=== PATIENT | male | born 1970 | race Caucasian/White ===

== ENCOUNTER 2020-11-10 14:33 | Emergency (ER) | payer BC ==
[~2020-11-10] VITALS: Ht 182.9 cm; Wt 109.1 kg
[2020-11-10 14:36] VITALS: TEMP 94.8
[2020-11-10 15:25] LABS: BASO % 0.8 % (0.0-2.0); EOS # 0.1 (0.0-0.7); EOS % 0.9 % (0-4.0); GRAN # 2.6 (1.4-6.5); GRAN % 49.2 % (42.2-75.2); HEMATOCRIT 39.8 % (42.0-52.0); HEMOGLOBIN 13.4 g/dl (13.5-18.0); LYMPH # 2.2 (1.2-3.4); LYMPH % 40.6 % (20.0-51.0); MEAN CELL VOLUME 89 fl (80.0-100.0); MEAN CORPUSCULAR HEMOGLOBIN 30 pg (27.0-31.0); MEAN CORPUSCULAR HGB CONC 34 g/dl (33.0-37.0); MEAN PLATELET VOLUME 8.9 fl (7.4-10.4); MONO # 0.4 (0.1-0.6); MONO % 8.1 % (1.7-9.3); PLATELET COUNT 211 K/mm3 (130-400); RED BLOOD COUNT 4.45 M/mm3 (4.20-5.60); REDCELL DISTRIBUTION WIDTH-CV 14.4 % (11.5-14.5)
[2020-11-10 15:30] LABS: BILIRUBIN,TOTAL 0.4 mg/dL (0.0-1.0); CALCIUM 8.3 mg/dL (8.4-10.2); CREATININE, serum 0.83 (0.66-1.25); TOTAL PROTEIN 7.5 gm/dL (6.4-8.2)
[2020-11-10 15:55] LABS: COLLECTION METHOD CLEAN CATCH
[2020-11-10 16:09] LABS: PH 7 (5-8); SQUAMOUS EPITHELIAL None Seen /hpf; URINE APPEARANCE Clear; URINE BACTERIA None Seen /hpf; URINE BILIRUBIN Negative (NEGATIVE); URINE BLOOD 1+ (NEGATIVE); URINE COLOR Colorless; URINE GLUCOSE Negative (NEGATIVE); URINE KETONE Negative (NEGATIVE); URINE LEUKOCYTE ESTERASE Negative (NEGATIVE); URINE NITRATE Negative (NEGATIVE); URINE PROTEIN(semi-quant) Negative (NEGATIVE); URINE RBC 0-2 /hpf; URINE UROBILINOGEN Negative (NEGATIVE)
[2020-11-10] MEDS ORDERED: LIBRIUM 25M25 MG/CAP PO (18:20)
[2020-11-10 18:48] VITALS: BP 123/81; PULSE 82
== END 2020-11-10 18:48 | disposition home or self-care (01) ==
LOC: COL.ER 14:33
PROVIDERS: Physician Assistant
DX: F10.129 Alcohol abuse with intoxication, unspecified (principal); I10 Essential (primary) hypertension; Z88.2 Allergy status to sulfonamides
CPT/HCPCS: J2060; J7120

== ENCOUNTER 2020-12-27 16:10 | Emergency (ER) | payer BC ==
[~2020-12-27] VITALS: Ht 182.9 cm; Wt 111.4 kg
[~2020-12-27 16:10] MED LIST: LIBRIUM 25M25 MG/CAP PO
[2020-12-27 16:11] VITALS: TEMP 100.4
[2020-12-27 16:46] LABS: BASO % 0.5 % (0.0-2.0); EOS # 0.1 (0.0-0.7); GRAN # 3.6 (1.4-6.5); GRAN % 58.5 % (42.2-75.2); HEMOGLOBIN 14.2 g/dl (13.5-18.0); LYMPH % 31.9 % (20.0-51.0); MEAN CELL VOLUME 88 fl (80.0-100.0); MEAN CORPUSCULAR HEMOGLOBIN 31 pg (27.0-31.0); MEAN CORPUSCULAR HGB CONC 35 g/dl (33.0-37.0); MEAN PLATELET VOLUME 9.1 fl (7.4-10.4); MONO # 0.5 (0.1-0.6); MONO % 7.9 % (1.7-9.3); PLATELET COUNT 170 K/mm3 (130-400); RED BLOOD COUNT 4.65 M/mm3 (4.20-5.60); REDCELL DISTRIBUTION WIDTH-CV 14.5 % (11.5-14.5)
[2020-12-27 16:58] LABS: ALANINE AMINOTRANSFERASE 39 U/L (4-49); ALBUMIN 4.1 gm/dL (3.5-5.0); ALKALINE PHOSPHATASE 70 U/L (50-136); ANION GAP 10 mmol/L (7-16); AST,SGOT 70 U/L (15-37); BILIRUBIN,TOTAL 0.4 mg/dL (0.0-1.0); BLOOD UREA NITROGEN 13 mg/dL (9-20); CALCIUM 8.3 mg/dL (8.4-10.2); CARBON DIOXIDE 24 mmol/L (22-30); CHLORIDE 106 mmol/L (98-107); CREATININE, serum 0.86 (0.66-1.25); GLUCOSE 113 mg/dL (74-106); LIPASE 155 U/L (23-300); POTASSIUM 3.8 mmol/L (3.4-5.0); SODIUM 140 mmol/L (137-145); TOTAL PROTEIN 7.7 gm/dL (6.4-8.2)
[2020-12-27 17:00] LABS: C-REACTIVE PROTEIN < 0.5 mg/dL (0.0-0.9)
[2020-12-27 19:49] LABS: COLLECTION METHOD CLEAN CATCH
[2020-12-27 19:55] LABS: MUCOUS Present /lpf; PH 6 (5-8); SQUAMOUS EPITHELIAL None Seen /hpf; URINE APPEARANCE Clear; URINE BACTERIA None Seen /hpf; URINE BILIRUBIN Negative (NEGATIVE); URINE BLOOD 1+ (NEGATIVE); URINE COLOR Yellow; URINE GLUCOSE Negative (NEGATIVE); URINE KETONE Negative (NEGATIVE); URINE LEUKOCYTE ESTERASE Negative (NEGATIVE); URINE NITRATE Negative (NEGATIVE); URINE PROTEIN(semi-quant) Negative (NEGATIVE); URINE RBC 0-2 /hpf; URINE UROBILINOGEN Negative (NEGATIVE)
[2020-12-27 21:05] VITALS: BP 128/85; PULSE 80
== END 2020-12-27 21:20 | disposition home or self-care (01) ==
LOC: COL.ER 16:10
PROVIDERS: Family Medicine
DX: F10.129 Alcohol abuse with intoxication, unspecified (principal); F10.139 Alcohol abuse with withdrawal, unspecified; E86.0 Dehydration; I10 Essential (primary) hypertension; F41.9 Anxiety disorder, unspecified; Z79.899 Other long term (current) drug therapy
CPT/HCPCS: J2060; J7120

== ENCOUNTER 2021-01-23 11:29 | Emergency (ER) | payer BC ==
[~2021-01-23] VITALS: Ht 177.8 cm; Wt 113.6 kg
[2021-01-23 11:31] VITALS: TEMP 99.7
[2021-01-23 12:03] LABS: BASO # 0.1 (0.0-0.2); EOS # 0.1 (0.0-0.7); EOS % 1.9 % (0-4.0); GRAN # 2.8 (1.4-6.5); GRAN % 53.9 % (42.2-75.2); HEMATOCRIT 40.5 % (42.0-52.0); HEMOGLOBIN 13.7 g/dl (13.5-18.0); LYMPH # 1.9 (1.2-3.4); LYMPH % 37.7 % (20.0-51.0); MEAN CELL VOLUME 89 fl (80.0-100.0); MEAN CORPUSCULAR HEMOGLOBIN 30 pg (27.0-31.0); MEAN CORPUSCULAR HGB CONC 34 g/dl (33.0-37.0); MEAN PLATELET VOLUME 8.8 fl (7.4-10.4); MONO # 0.3 (0.1-0.6); MONO % 5.3 % (1.7-9.3); PLATELET COUNT 239 K/mm3 (130-400); RED BLOOD COUNT 4.57 M/mm3 (4.20-5.60); REDCELL DISTRIBUTION WIDTH-CV 13.7 % (11.5-14.5)
[2021-01-23] MEDS ORDERED: NEURONTIN300 MG/CAP PO (12:04)
[2021-01-23] MEDS ORDERED: LOPRESSOR 225 MG/TAB PO (12:05)
[2021-01-23] MEDS ORDERED: SEROQUEL 2525 MG/TAB PO (12:05)
[2021-01-23] MEDS ORDERED: PAXIL 20MG20 MG PO (12:06)
[2021-01-23 12:16] LABS: ALBUMIN 3.9 gm/dL (3.5-5.0); BILIRUBIN,TOTAL 0.5 mg/dL (0.0-1.0); CALCIUM 8.5 mg/dL (8.4-10.2); CREATININE, serum 0.85 (0.66-1.25); MAGNESIUM 1.7 mg/dL (1.6-2.3); POTASSIUM 4.2 mmol/L (3.4-5.0); TOTAL PROTEIN 7.3 gm/dL (6.4-8.2)
[2021-01-23] MEDS ORDERED: LIBRIUM 25M25 MG/CAP PO (12:57)
[2021-01-23 13:10] LABS: COLLECTION METHOD CLEAN CATCH
[2021-01-23 13:16] LABS: PH 6 (5-8); SQUAMOUS EPITHELIAL None Seen /hpf; URINE APPEARANCE Clear; URINE BACTERIA None Seen /hpf; URINE BILIRUBIN Negative (NEGATIVE); URINE BLOOD 1+ (NEGATIVE); URINE COLOR Straw; URINE GLUCOSE Negative (NEGATIVE); URINE KETONE Negative (NEGATIVE); URINE LEUKOCYTE ESTERASE Negative (NEGATIVE); URINE NITRATE Negative (NEGATIVE); URINE PROTEIN(semi-quant) Negative (NEGATIVE); URINE RBC 0-2 /hpf; URINE UROBILINOGEN Negative (NEGATIVE)
[2021-01-23 13:51] VITALS: BP 106/66; PULSE 79
== END 2021-01-23 13:53 | disposition home or self-care (01) ==
LOC: COL.ER 11:29
PROVIDERS: Emergency Medicine
DX: F10.129 Alcohol abuse with intoxication, unspecified (principal); F41.9 Anxiety disorder, unspecified; Y90.8 Blood alcohol level of 240 mg/100 ml or more; Z79.899 Other long term (current) drug therapy
CPT/HCPCS: J2060; J3411; J7030

== ENCOUNTER 2021-04-17 05:35 | Emergency (ER) | payer BC ==
[~2021-04-17] VITALS: Ht 180.3 cm; Wt 112.7 kg
[~2021-04-17 05:35] MED LIST changes: +LOPRESSOR 225 MG/TAB PO; +NEURONTIN300 MG/CAP PO; +PAXIL 20MG20 MG PO; +SEROQUEL 2525 MG/TAB PO
[2021-04-17 05:39] VITALS: TEMP 97.5
[2021-04-17 05:59] LABS: BASO # 0.1 (0.0-0.2); BASO % 0.6 % (0.0-2.0); EOS # 0.2 (0.0-0.7); EOS % 1.9 % (0-4.0); GRAN # 5.4 (1.4-6.5); HEMATOCRIT 41.8 % (42.0-52.0); HEMOGLOBIN 13.9 g/dl (13.5-18.0); LYMPH # 2.1 (1.2-3.4); MEAN CELL VOLUME 91 fl (80.0-100.0); MEAN CORPUSCULAR HEMOGLOBIN 30 pg (27.0-31.0); MEAN CORPUSCULAR HGB CONC 33 g/dl (33.0-37.0); MEAN PLATELET VOLUME 9.2 fl (7.4-10.4); MONO # 0.6 (0.1-0.6); MONO % 7.3 % (1.7-9.3); PLATELET COUNT 232 K/mm3 (130-400); RED BLOOD COUNT 4.59 M/mm3 (4.20-5.60); REDCELL DISTRIBUTION WIDTH-CV 14.6 % (11.5-14.5)
[2021-04-17 06:12] LABS: ANION GAP 14 mmol/L (7-16); BLOOD UREA NITROGEN 18 mg/dL (9-20); CALCIUM 8.9 mg/dL (8.4-10.2); CARBON DIOXIDE 21 mmol/L (22-30); CHLORIDE 110 mmol/L (98-107); CREATININE, serum 1.56 (0.66-1.25); GLUCOSE 92 mg/dL (74-106); POTASSIUM 4.2 mmol/L (3.4-5.0); SODIUM 145 mmol/L (137-145)
[2021-04-17 06:27] LABS: TROPONIN-I < 0.012 ng/mL (0.000-0.035)
[2021-04-17 07:38] VITALS: BP 109/73; PULSE 92
== END 2021-04-17 07:51 | disposition home or self-care (01) ==
LOC: COL.ER 05:35
PROVIDERS: Emergency Medicine
DX: S09.90XA Unspecified injury of head, initial encounter (principal); S01.01XA Laceration without foreign body of scalp, initial encounter; F10.129 Alcohol abuse with intoxication, unspecified; I48.0 Paroxysmal atrial fibrillation; I10 Essential (primary) hypertension; R79.89 Other specified abnormal findings of blood chemistry; Z79.899 Other long term (current) drug therapy; W01.198A Fall on same level from slipping, tripping and stumbling with subsequent striking against other object, initial encounter; Y92.009 Unspecified place in unspecified non-institutional (private) residence as the place of occurrence of the external cause
CPT/HCPCS: J7030

== ENCOUNTER → 2021-04-26 | Outpatient (CLI) | payer BC ==
[~2021-04-26] MED LIST changes: +ATIVAN 0.50.5 MG/TAB PO; +ATIVAN 1MG T1 MG/TAB PO; +FOLIC ACID 11 MG/TA1 PO; +MEN'S ONE DAIL1 EACH PO; +NORVASC 5MG5 MG/TAB PO; +PRINIVIL40 MG PO; +SEROQUEL50 MG PO; +THIAMINE 1100 MG/TAB PO; +VITAMIN B-6100 MG
[2021-04-26 17:03] VITALS: BP 140/86; PULSE 62
== END ==
LOC: COL.ER 16:54
DX: Z48.02 Encounter for removal of sutures (principal)

== ENCOUNTER 2021-05-06 07:30 | Outpatient (CLI) | payer BC ==
[~2021-05-06] VITALS: Ht 182.9 cm; Wt 115.0 kg
[~2021-05-06 07:30] MED LIST changes: -ATIVAN 0.50.5 MG/TAB PO; -ATIVAN 1MG T1 MG/TAB PO; -FOLIC ACID 11 MG/TA1 PO; -MEN'S ONE DAIL1 EACH PO; -NORVASC 5MG5 MG/TAB PO; -PRINIVIL40 MG PO; -SEROQUEL50 MG PO; -THIAMINE 1100 MG/TAB PO; -VITAMIN B-6100 MG
[2021-05-06] MEDS ORDERED: LIBRIUM 25M25 MG/CAP PO (08:25)
[2021-05-06] MEDS ORDERED: NEURONTIN300 MG/CAP PO (08:27)
[2021-05-06] MEDS ORDERED: NORVASC 5MG5 MG/TAB PO (08:32)
[2021-05-06] MEDS ORDERED: PRINIVIL40 MG PO (08:32)
[2021-05-06 09:19] VITALS: BP 120/79; PULSE 58; TEMP 97.9
--- NOTE | 2021-05-06 09:46 | NUR ---
Pt is dressed and ready to go. I reviewed discharge and follow-up instructions with patient who verbalized understanding. I walked with pt to exit.
== END 2021-05-06 09:46 | disposition home or self-care (01) ==
LOC: COL.RAD 07:30
DX: I34.1 Nonrheumatic mitral (valve) prolapse (principal); I48.0 Paroxysmal atrial fibrillation; Z20.822 Contact with and (suspected) exposure to COVID-19
CPT/HCPCS: J2704

== ENCOUNTER 2021-06-10 06:46 | Observation (INO) | payer BC ==
[~2021-06-10] VITALS: Ht 15.2 cm; Wt 116.0 kg
[2021-06-10] VITALS (8 sets, daily range): BP systolic 127–150; BP diastolic 64–84; PULSE 66–78; TEMP 97.6–98.4
[~2021-06-10 06:46] MED LIST changes: +NORVASC 5MG5 MG/TAB PO; +PRINIVIL40 MG PO
[2021-06-10 07:31] LABS: BASO # 0.1 K/mm3 (0.0-0.2); BASO % 1.2 % (0.0-2.0); EOS % 0.4 % (0-4.0); GRAN # 3.3 K/mm3 (1.4-6.5); GRAN % 64.6 % (42.2-75.2); LYMPH # 1.5 K/mm3 (1.2-3.4); LYMPH % 29.3 % (20.0-51.0); MEAN CELL VOLUME 87 fl (80.0-100.0); MEAN CORPUSCULAR HEMOGLOBIN 30 pg (27.0-31.0); MEAN CORPUSCULAR HGB CONC 35 g/dl (33.0-37.0); MEAN PLATELET VOLUME 8.7 fl (7.4-10.4); MONO # 0.2 K/mm3 (0.1-0.6); MONO % 4.5 % (1.7-9.3); PLATELET COUNT 265 K/mm3 (130-400); RED BLOOD COUNT 4.97 M/mm3 (4.20-5.60)
[2021-06-10 07:54] LABS: ALBUMIN 4.2 gm/dL (3.5-5.0); BILIRUBIN,TOTAL 0.5 mg/dL (0.2-1.2); CALCIUM 9.1 mg/dL (8.4-10.2); CREATININE, serum 0.89 mg/dL (0.72-1.25); TOTAL PROTEIN 7.6 gm/dL (6.2-8.1)
[2021-06-10 08:53] LABS: INR 1.1 (0.8-3.0); PROTHROMBIN TIME 12.6 SECONDS (9.7-12.8)
--- NOTE | 2021-06-10 09:40 | NUR ---
Patient to room 347 by cart from the ED. A&Ox4. VSS. IV CDI. Visible tremors upper body. Patient ambulated to the bed with a standby assist. Nurse oriented the patient to location, room and call light. Denies pain and discomfort, requested something for anxiety. no further needs expressed. Nurse informed the patient that he will have a bed alarm on. Call light within reach. Bed alarm on
[2021-06-10 09:46] LABS: COLLECTION METHOD CLEAN CATCH
[2021-06-10] MEDS ORDERED: SEROQUEL50 MG PO (09:51)
[2021-06-10] MEDS ORDERED: VITAMIN B-6100 MG (09:52)
[2021-06-10] MEDS ORDERED: MEN'S ONE DAIL1 EACH PO (09:52)
[2021-06-10 09:54] LABS: PH 7 (5-8); SQUAMOUS EPITHELIAL None Seen /hpf; URINE APPEARANCE Clear; URINE BACTERIA None Seen /hpf; URINE BILIRUBIN Negative (NEGATIVE); URINE BLOOD Negative (NEGATIVE); URINE COLOR Straw; URINE GLUCOSE Negative (NEGATIVE); URINE KETONE Negative (NEGATIVE); URINE LEUKOCYTE ESTERASE Negative (NEGATIVE); URINE NITRATE Negative (NEGATIVE); URINE PROTEIN(semi-quant) Negative (NEGATIVE); URINE RBC 0-2 /hpf; URINE UROBILINOGEN Negative (NEGATIVE)
[2021-06-10 10:36] LABS: TRICYCLIC ANTIDEPRESS URINE NEGATIVE
--- NOTE | 2021-06-10 18:10 | NUR ---
Patient laying in bed lower half of body shaking, at the bedside. A&Ox3. VSS. IV CDI, fluids infusing. Detox protocol in place. Nursing staff encouraging patient to take deep breaths to help calm down. Patient verbalized an understanding. Call light within reach. Bed alarm on
--- NOTE | 2021-06-10 20:00 | NUR ---
PATIENT IS ALERT AND ORIENTED X4. RESTING IN BED. JUST LEFT TO GO HOME. PATIENT HAS IV TO LEFT AC. PATIENT IS ON GENERAL DIET AND CWAL. PATIENT ON TELE. PATIENT COMPLAINING OF ANXIETY. MEDS GIVEN PER ORDERS. PATIENT DENIES PAIN OR FURTHER NEEDS AT THIS TIME. CALL LIGHT WITHIN REACH. HEAD TO TOE ASSESSMENT COMPLETE.
[2021-06-11] VITALS (15 sets, daily range): BP systolic 125–153; BP diastolic 73–92; PULSE 62–84; TEMP 97.5–98.4
--- NOTE | 2021-06-11 04:22 | NUR ---
patient states he is feeling much less anxious now
--- NOTE | 2021-06-11 06:24 | NUR ---
PATIENT SLEPT THROUGH MOST OF NIGHT. CPAP ON. PATIENT STATES HE IS NOT ANXIOUS, JUST TIRED THIS MORNING. NO FURTHER NEEDS. WILL REPORT TO DAYSHIFT.
[2021-06-11 06:56] LABS: CALCIUM 8.8 mg/dL (8.4-10.2); CREATININE, serum 0.84 mg/dL (0.72-1.25); POTASSIUM 3.9 mmol/L (3.5-4.5)
--- NOTE | 2021-06-11 08:00 | NUR ---
Patient laying in bed, A&Ox4. VSS. IV CDI, fluids infusing. Denies pain, reports being anxious and needing medication for his anxiety. Detox protocol in place. No further needs expressed. Call light within reach. Bed alarm on
--- NOTE | 2021-06-11 11:56 | NUR ---
Plan is to return home with spouse Leesa . Patient reports that his PCP is Dr. Araceli Escalante but is looking for [facility] PCP and is okay with a referral. Patient reports the use of CPAP machine. RX obtained at [facility]. Patient interested in Dr. Goodson. Nicholas Goodson not taking private patients. Patient denies ahving any care concerns. Education on supports. Denies needing home health supports. Will continue to monitor for care supports.
--- NOTE | 2021-06-11 17:56 | NUR ---
Patient had an uneventful day. Laid in bed in the dark watching TV and sleeping intermittently throughout the shift. A&Ox4. VSS. IV CDI. Anxiety medication given when requested. Nurse encouraged patient to use coping skills to help decrease anxiety. Patient verbalized an understanding. No further needs expressed. Call light within reach
--- NOTE | 2021-06-11 20:43 | NUR ---
PT TAKES HS MEDS INCLUDING ATIVAN 2MG PO FOR COMPLAINT OF ANXIETY AND "SCRATCHY" FEELING. DENIES NAUSEA. NO OBVIOUS TREMORS WITH ARMS OUTSTRETCHED OR FINGER TIP TO FINGER TIP. GAIT STEADY. IS ALERT AND ORIENTED X4. SL TO LEFT AC FLUSHES WELL. PT DOES NOT WANT TO WEAR HOSPITAL SUPPLIED CPAP TONIGHT.
--- NOTE | 2021-06-12 01:03 | NUR ---
Patient care, medication administration and nursing documentation occurred during a Daylight Savings Time Change.
[2021-06-12 03:51] VITALS: BP 132/77; PULSE 68; TEMP 97.7
--- NOTE | 2021-06-12 06:00 | NUR ---
PT DENIES NEEDS. SCORING 2-3 ON DETOX SCALE. NO ATIVAN SINCE BEDTIME. REPORTS RESTING OK WITHOUT CPAP ON.
--- NOTE | 2021-06-12 07:05 | NUR ---
REPORT RECIEVED. NO COMPLAINTS OF PAIN OR DSYPNEA. NO SIGNS OR SYMPTOMS OF DISTRESS. CALL LIGHT WITHIN REACH
[2021-06-12 07:35] LABS: CALCIUM 9.1 mg/dL (8.4-10.2); CREATININE, serum 0.84 mg/dL (0.72-1.25); MAGNESIUM 1.8 mg/dL (1.6-2.6); POTASSIUM 3.8 mmol/L (3.5-4.5)
[2021-06-12 08:43] VITALS: BP 141/91; PULSE 75; TEMP 97.6
--- NOTE | 2021-06-12 09:32 | NUR ---
PT ASSESSED. NO SIGNS OR SYMPTOMS OF DISTRESS. NO COMPLAINTS OF PAIN OR DYPSNEA. PT COMPLAINS OF NAUSEA. PRN ZOFRAN GIVEN
[2021-06-12 12:25] VITALS: BP 141/77; PULSE 67; TEMP 98.6
[2021-06-12] MEDS ORDERED: ATIVAN 1MG T1 MG/TAB PO (14:48)
[2021-06-12] MEDS ORDERED: THIAMINE 1100 MG/TAB PO (14:49)
[2021-06-12] MEDS ORDERED: FOLIC ACID 11 MG/TA1 PO (14:49)
--- NOTE | 2021-06-12 15:40 | NUR ---
PT DISCHARGE COMPLETE. NO SIGNS OR SYMPTOMS OF DISTRESS. PT VERBALIZED UNDERSTANING OF TEACHING. NO COMPLAINTS OF PAIN OR DYSPNEA. IV REMOVED. PT WALKED SELF DOWNSTAIRS
== END 2021-06-12 13:45 | disposition home or self-care (01) ==
LOC: COL.ER 06:46 → SURG 08:13
PROVIDERS: Emergency Medicine; Physician Assistant; ADMIT Internal Medicine
DX: F10.239 Alcohol dependence with withdrawal, unspecified (principal); I10 Essential (primary) hypertension; I48.0 Paroxysmal atrial fibrillation; F41.9 Anxiety disorder, unspecified; G47.33 Obstructive sleep apnea (adult) (pediatric); Z87.820 Personal history of traumatic brain injury; Z79.899 Other long term (current) drug therapy
CPT/HCPCS: 99232-AI; G0378; J2060; J2405; J3360; J7030; J7120

== ENCOUNTER 2021-07-01 16:52 | Emergency (ER) | payer BC ==
[~2021-07-01] VITALS: Ht 182.9 cm; Wt 111.4 kg
[~2021-07-01 16:52] MED LIST changes: +ATIVAN 1MG T1 MG/TAB PO; +FOLIC ACID 11 MG/TA1 PO; +MEN'S ONE DAIL1 EACH PO; +SEROQUEL50 MG PO; +THIAMINE 1100 MG/TAB PO; +VITAMIN B-6100 MG
[2021-07-01 16:54] VITALS: TEMP 98.3
[2021-07-01 17:28] LABS: BASO # 0.1 K/mm3 (0.0-0.2); BASO % 1.2 % (0.0-2.0); EOS # 0.1 K/mm3 (0.0-0.7); EOS % 1.2 % (0-4.0); GRAN # 3.6 K/mm3 (1.4-6.5); GRAN % 47.9 % (42.2-75.2); HEMATOCRIT 44.9 % (42.0-52.0); HEMOGLOBIN 15.5 g/dl (13.5-18.0); LYMPH # 3.3 K/mm3 (1.2-3.4); LYMPH % 44.4 % (20.0-51.0); MEAN CELL VOLUME 88 fl (80.0-100.0); MEAN CORPUSCULAR HEMOGLOBIN 31 pg (27.0-31.0); MEAN CORPUSCULAR HGB CONC 35 g/dl (33.0-37.0); MEAN PLATELET VOLUME 9.2 fl (7.4-10.4); MONO # 0.4 K/mm3 (0.1-0.6); PLATELET COUNT 148 K/mm3 (130-400); RED BLOOD COUNT 5.08 M/mm3 (4.20-5.60); REDCELL DISTRIBUTION WIDTH-CV 13.6 % (11.5-14.5)
[2021-07-01 17:30] LABS: ALANINE AMINOTRANSFERASE 30 U/L (0-55); ALBUMIN 4.2 gm/dL (3.5-5.0); ALKALINE PHOSPHATASE 82 U/L (40-150); ANION GAP 18 mmol/L (7-16); AST,SGOT 45 U/L (5-34); BILIRUBIN,TOTAL 0.3 mg/dL (0.2-1.2); BLOOD UREA NITROGEN 12 mg/dL (8-26); CALCIUM 8.6 mg/dL (8.4-10.2); CARBON DIOXIDE 19 mmol/L (22-29); CHLORIDE 107 mmol/L (98-107); CREATININE, serum 1.12 mg/dL (0.72-1.25); GLUCOSE 101 mg/dL (70-99); SODIUM 144 mmol/L (136-145)
[2021-07-01 17:32] LABS: ACETAMINOPHEN < 1.0 ug/mL (10-30); SALICYLATE < 5.0 mg/dL (15.0-30.0)
[2021-07-01 17:33] LABS: ALCOHOL(ethanol),MEDICAL 372 mg/dL (0-10)
[2021-07-01 20:44] LABS: TRICYCLIC ANTIDEPRESS URINE NEGATIVE
[2021-07-01] MEDS ORDERED: ATIVAN 0.50.5 MG/TAB PO (21:24)
[2021-07-01 21:33] VITALS: BP 138/89; PULSE 84
== END 2021-07-01 21:36 | disposition home or self-care (01) ==
LOC: COL.ER 16:52
PROVIDERS: Nurse Practitioner
DX: F41.9 Anxiety disorder, unspecified (principal); F10.239 Alcohol dependence with withdrawal, unspecified; I10 Essential (primary) hypertension; I48.0 Paroxysmal atrial fibrillation; Y90.8 Blood alcohol level of 240 mg/100 ml or more; Z79.899 Other long term (current) drug therapy
CPT/HCPCS: J2060; J7030

== ENCOUNTER 2021-08-03 10:19 | Emergency (ER) | payer BC ==
[~2021-08-03] VITALS: Ht 182.9 cm; Wt 104.5 kg
[~2021-08-03 10:19] MED LIST changes: +ATIVAN 0.50.5 MG/TAB PO
[2021-08-03 10:21] VITALS: TEMP 97.5
[2021-08-03 10:37] LABS: BASO # 0.1 K/mm3 (0.0-0.2); BASO % 0.9 % (0.0-2.0); EOS % 0.2 % (0.0-4.0); GRAN # 3.6 K/mm3 (1.4-6.5); GRAN % 63.6 % (42.2-75.2); HEMATOCRIT 41.7 % (42.0-52.0); HEMOGLOBIN 14.3 g/dl (13.5-18.0); LYMPH # 1.6 K/mm3 (1.2-3.4); LYMPH % 28.8 % (20.0-51.0); MEAN CELL VOLUME 89 fl (80.0-100.0); MEAN CORPUSCULAR HEMOGLOBIN 30 pg (27-31); MEAN CORPUSCULAR HGB CONC 34 g/dl (33.0-37.0); MEAN PLATELET VOLUME 9.1 fl (7.4-10.4); MONO # 0.4 K/mm3 (0.1-0.6); MONO % 6.3 % (1.7-9.3); PLATELET COUNT 188 K/mm3 (130-400); RED BLOOD COUNT 4.71 M/mm3 (4.20-5.60); REDCELL DISTRIBUTION WIDTH-CV 13.6 % (11.5-14.5)
[2021-08-03 10:49] LABS: ALBUMIN 4.2 gm/dL (3.5-5.0); BILIRUBIN,TOTAL 0.9 mg/dL (0.2-1.2); CALCIUM 8.8 mg/dL (8.4-10.2); CREATININE, serum 0.89 mg/dL (0.72-1.25); MAGNESIUM 1.9 mg/dL (1.6-2.6); POTASSIUM 4.1 mmol/L (3.5-4.5); TOTAL PROTEIN 7.7 gm/dL (6.2-8.1)
[2021-08-03] MEDS ORDERED: ATIVAN 0.50.5 MG/TAB PO (13:03)
[2021-08-03 13:15] VITALS: BP 130/83; PULSE 61
== END 2021-08-03 14:15 | disposition home or self-care (01) ==
LOC: COL.ER 10:19
PROVIDERS: Nurse Practitioner
DX: F10.10 Alcohol abuse, uncomplicated (principal); F41.9 Anxiety disorder, unspecified; I48.91 Unspecified atrial fibrillation; Y90.8 Blood alcohol level of 240 mg/100 ml or more; Z79.899 Other long term (current) drug therapy
CPT/HCPCS: J2060; J7030

== ENCOUNTER 2021-10-25 15:57 | Emergency (ER) | payer BC ==
[~2021-10-25] VITALS: Ht 182.9 cm; Wt 113.6 kg
[~2021-10-25 15:57] MED LIST changes: +ZOFRAN ODT4 MG PO
[2021-10-25 16:03] VITALS: TEMP 98.4
[2021-10-25 18:57] VITALS: BP 121/77; PULSE 75
--- NOTE | 2021-10-26 15:02 | NUR ---
SW attempted to reach patient to discuss detox options. Unable to reach patient and message left on phone ([phone]).
== END 2021-10-25 19:10 | disposition home or self-care (01) ==
LOC: COL.ER 15:57
DX: F10.10 Alcohol abuse, uncomplicated (principal); Y90.8 Blood alcohol level of 240 mg/100 ml or more
CPT/HCPCS: J2060; J2405; J7030